=== PATIENT | male | born 1970 | race Caucasian/White ===

== ENCOUNTER 2018-02-20 11:23 | Emergency (ER) | payer BC ==
[2018-02-20 11:30] VITALS: BP 126/89
[2018-02-20] MEDS ORDERED: TDAP ADULT 0.5 ML INJ (BOOSTRIX) IM ONE ×2 (12:11→12:22)
--- NOTE | 2018-02-20 12:11 | EDPHY ---
General - History Smoking Status: Never smoked Time Seen by Provider: 02/20/18 12:08 Narrative: CHIEF COMPLAINT: Head injury HISTORY OF PRESENT ILLNESS: Patient presents with complaints of head injury. He states that he was moving furniture just prior to arrival when a piece of furniture fell, striking him on the top of the head. He denies any loss of consciousness. He states that a sharp edge of the furniture struck him, causing a laceration to the front of the scalp. He noticed moderate bleeding that stopped with pressure. He has had no headache. No neck pain. No visual disturbance. No vomiting. No drainage from the nose. He has no difficulty ambulating. He has minimal discomfort at the site of laceration. He is not sure when his last Tdap was administered. He has no other associated complaints or modifying factors. REVIEW OF SYSTEMS: 10 systems were reviewed and negative with the exception of the elements mentioned in the history of present illness. PCP: Dr. Murillo SPECIALISTS: None PAST MEDICAL HISTORY: Denies any medical diagnoses PAST SURGICAL HISTORY: Denies any surgical history SOCIAL HISTORY: Nonsmoker. Lives and works independently FAMILY HISTORY: Noncontributory EXAMINATION: General Appearance: Alert, no distress Head: normocephalic. Superficial scalp laceration just right of midline anteriorly in the hairline measuring 1 cm. No pulsatile bleeding. No foreign body. No exposure or injury to the galea. Eyes: Pupils equal and round, no conjunctival pallor or injection ENT, Mouth: Mucous membranes moist Neck: Normal inspection, supple, non-tender Back: non-tender, no bony abnormalities Neurological: GCS 15. A&O, nonfocal, normal gait. Strength is symmetric in all 4 limbs. Light sensory symmetric in the upper lower extremities. Normal [id number]. No pronator drift. Skin: Warm and dry, no rash. Scalp laceration as above. Extremities: Nontender, no pedal edema Psychiatric: Mood and affect normal DIFFERENTIAL DIAGNOSES: Including but not limited to skull fracture, closed head injury, scalp laceration, intracranial hemorrhage MDM: 12:10 p.m. Blunt trauma to the top of the head just prior to arrival with a superficial scalp laceration. There is no evidence of intracranial abnormality by history exam. His [place] CT head rules criteria negative, and I do not feel he warrants CT scan of the head. He is well-appearing nontoxic. Neuro exam is fully intact. He will need a Tdap booster. I have anesthetize the wound for us to irrigate as I cannot fully visualize it. 12:25 p.m. Wound has been irrigated copiously by ED survey data technician. I re-evaluated. There is a 1 cm area laceration that required Staple. This was done without difficulty. There is no injury to the galea. No foreign body prior to closing. We discussed wound care. We discussed ED precautions for head injury and signs of infection. We discussed staple removal here in 10 days. I have answered all his questions. He is well-appearing and ambulatory. Discharged home stable condition. PROCEDURE: Laceration repair Consent: Verbal Location: Scalp laceration, right Length of repair: 1 cm Complexity: Simple Layer involvement: Single Anesthesia: Local. 0.5% Marcaine plain, 5 mL Irrigation: Extensive Debridement: None Procedure description: Following good anesthesia, the wound was copiously irrigated. Wound bed was explored with a sterile glove, and there is no foreign body noted. No injury to the galea noted. Wound borders were approximated well with good hemostasis. Tolerated well without complication. Suture/Staple material: 1 staple Wound care: Routine as discussed Suture/Staple removal: 10 Days SUPERVISION: This patient was independently evaluated without direct involvement of or examination by the attending physician. CONSULTATION: None (Reji Boggs) Medical Decision Making: I did not see this patient while he was in the emergency department. However his care was discussed with the PA while the patient was in the department. I agree with treatment plan and management (Nestor Quiroga) - Objective Vital Signs: Initial Vital Signs Temperature (C) 36.7 C 02/20/18 11:27 Heart Rate 60 02/20/18 11:27 Respiratory Rate 18 02/20/18 11:27 Blood Pressure 126/89 H 02/20/18 11:27 O2 Sat (%) 95 02/20/18 11:27 O2 Delivery Mode Room Air Allergies/Adverse Reactions: No Known Allergies Allergy (Unverified 02/20/18 11:30) Home Medications: Medication Instructions Recorded Miscellaneous Medical Supply [NO 09/17/12 HOME MEDS] Medications Given: Discontinued Medications Diphtheria/Tetanus/Acell Pertussis (Boostrix) 0.5 ml IM .ONCE ONE Stop: 02/20/18 12:12 Last Admin: 02/20/18 12:19 Dose: 0.5 ml Departure - Departure Disposition: Home, Routine, Self-Care Clinical Impression: Laceration of scalp, Closed head injury Condition: Good Instructions: Laceration (ED), Staple Care (ED) Additional Instructions: 1. Thin layer of bacitracin once daily for the next 2 days 2. Keep the wound covered while showering for the next 3 days 3. Daily wound care as discussed 4. Return here for staple removal in 10 days 5. Return here for signs of infection as discussed including warmth, redness, fever, drainage from the site 6. return here for increasing pain surrounding the laceration 7. Do not submerge the wound in any water, hot tub, swimming pool until sutures removed Referrals: Physician,Emergency Dept, [Medical Doctor] - As per Instructions Mary Roach MD [[facility] [place]] - As per Instructions
== END 2018-02-20 12:38 | disposition home or self-care (01) ==
PROC: 0HQ0XZZ Repair Scalp Skin, External Approach (ICD-10-PCS; principal; 2018-02-20)
DX: S01.01XA Laceration without foreign body of scalp, initial encounter (principal); W20.8XXA Other cause of strike by thrown, projected or falling object, initial encounter; Y93.E9 Activity, other interior property and clothing maintenance